=== PATIENT | female | born 1990 | race Caucasian/White ===

== ENCOUNTER 2022-12-28 00:26 | Emergency (ER) | payer OTHER ==
[~2022-12-28] VITALS: Ht 157.5 cm; Wt 123.5 kg
[2022-12-28] MEDS ORDERED: DIPH50CA PO (00:34)
[2022-12-28] MEDS ORDERED: EFFE75CA2 PO (00:34)
[2022-12-28] MEDS ORDERED: REGL5TAB2 PO (00:34)
[2022-12-28] MEDS ORDERED: FERR325T81 PO (00:34)
[2022-12-28] MEDS ORDERED: ACET-683 PO (00:34)
[2022-12-28] MEDS ORDERED: METF850T4 PO (00:34)
[2022-12-28] MEDS ORDERED: ONDANSETRON 4MG 2ML VIAL IV ONE (03:25)
[2022-12-28] MEDS: HYDROMORPHONE HCL 0.5 MG/ 0.5 ML SYRINGE IV PRN ×4 (03:27→08:32)
[2022-12-28 03:43] LABS: BASO % 0.5 % (0.0-1.0); EOS # 0.1 10^3/uL (0.0-0.5); EOS % 1.5 % (0.0-3.0); HEMATOCRIT 38.6 % (36.0-47.0); HEMOGLOBIN 12.4 g/dl (12.0-15.5); LYMPH # 2.5 10^3/uL (1.5-5.0); LYMPH % 27.8 % (24.0-44.0); MEAN CORPUSCULAR HGB CONC 32.1 g/dl (32.0-36.5); MEAN CORPUSCULAR VOLUME 93.5 fl (80.0-96.0); MONO # 0.7 10^3/uL (0.0-0.8); MONO % 8.3 % (2.0-8.0); NEUTROPHILS # 5.5 10^3/uL (1.5-8.5); NEUTROPHILS % 61.4 % (36.0-66.0); PLATELET COUNT, AUTOMATED 388 10^3/uL (150-450); RED BLOOD COUNT 4.13 10^6/uL (4.00-5.40); WHITE BLOOD COUNT 8.9 10^3/uL (4.0-10.0)
[2022-12-28 04:17] LABS: LIPASE 30 U/L (12-53)
[2022-12-28 04:20] LABS: ALBUMIN 3.4 G/DL (3.2-5.2); ALKALINE PHOSPHATASE 81 U/L (46-116); ALT/SGPT 73 U/L (7.0-40); AST/SGOT 32 U/L (<34); BILIRUBIN,DIRECT < 0.1 MG/DL (<0.4); BILIRUBIN,TOTAL 0.2 MG/DL (0.3-1.2); BLOOD UREA NITROGEN 8 MG/DL (9-23); CARBON DIOXIDE LEVEL 28 MMOL/L (20-31); CHLORIDE LEVEL 102 MMOL/L (98-107); CREATININE FOR GFR 0.58 MG/DL (0.55-1.30); GLOMERULAR FILTRATION RATE > 60.0 (>60); GLUCOSE, FASTING 86 MG/DL (60-100); POTASSIUM SERUM 4.1 MMOL/L (3.5-5.1); SODIUM LEVEL 136 MMOL/L (136-145); TOTAL PROTEIN 6.3 G/DL (5.7-8.2)
[2022-12-28 04:44] LABS: INR 0.87
[2022-12-28 04:45] LABS: PARTIAL THROMBOPLASTIN TIME 29.5 SECONDS (24.8-34.2)
[2022-12-28] MEDS ORDERED: ISOVUE-370 76% 100ML VIAL As Ordered ONE (05:06)
[2022-12-28] MEDS ORDERED: NS 1,000 ML IV ONE ×2 (05:50→07:30)
[2022-12-28] MEDS ORDERED: KETOROLAC 30 MG/ML 1ML VIAL IV ONE (07:05)
[2022-12-28] MEDS ORDERED: KETO10TAB PO (07:25)
[2022-12-28] MEDS ORDERED: OXYCODONE/APAP 5MG/325MG(HOME DOSE PACK) PO ONE (07:30)
[2022-12-28] MEDS ORDERED: PERC5TAB12 PO (07:42)
[2022-12-28 09:11] VITALS: BP 152/81; TEMP 99; O2SAT 77
== END 2022-12-28 09:23 | disposition home or self-care (01) ==
LOC: M ED 00:26
DX: R10.9 Unspecified abdominal pain (principal); G91.9 Hydrocephalus, unspecified; E28.2 Polycystic ovarian syndrome; Z98.2 Presence of cerebrospinal fluid drainage device; Z88.2 Allergy status to sulfonamides; Z79.899 Other long term (current) drug therapy; Z79.84 Long term (current) use of oral hypoglycemic drugs
CPT/HCPCS: 70450; 74177; 75809; 80048; 80076; 81001; 83605; 83690; 84702; 85025; 85610; 85730; 87486; 87581; 87633; 87798; 93005; 93041; 96365; 96366; 96367; 96375; 99285; J1170; J2405; Q9967